=== PATIENT | female | born 1965 | race Asian ===

== ENCOUNTER 2017-12-10 00:01 | Inpatient (IN) | payer OTHER ==
[~2017-12-10] VITALS: Ht 154.9 cm; Wt 55.7 kg
[2017-12-10] MEDS ORDERED: ONDANSETRON 2MG/ML, 2ML IVPush PRN (01:00)
[2017-12-10] MEDS ORDERED: SODIUM CHLORIDE 0.9% 1,000 ML IV SCH (01:00)
[2017-12-10] MEDS ORDERED: ACETAMINOPHEN 325 MG TABLET PO PRN (01:00)
[2017-12-10] MEDS ORDERED: HYDR10TA4 PO (01:03)
[2017-12-10] MEDS ORDERED: AMOX875T PO (01:03)
[2017-12-10 01:13] VITALS: BP 111/73
[2017-12-10] MEDS ORDERED: AMOXICILLIN/CLAV 875-125MG TABLET PO SCH (01:30)
[2017-12-10] MEDS ORDERED: hydrOXyzine 10MG TABLET PO PRN (01:30)
[2017-12-10 02:06] VITALS: BP 111/73
[2017-12-10 02:11] LABS: TROPONIN I < 0.015 ng/mL (0.000-0.045)
[2017-12-10 06:34] LABS: TROPONIN I < 0.015 ng/mL (0.000-0.045)
[2017-12-10 08:00] VITALS: BP 107/73
[2017-12-10 11:39] LABS: BASOPHILS # (AUTO) 0.06 x10^3/uL (0-0.1); BASOPHILS % (AUTO) 1 % (0-1); EOSINOPHILS # (AUTO) 0.11 x10^3/uL (0-0.4); EOSINOPHILS % (AUTO) 2 % (1-7); LYMPHOCYTES # (AUTO) 1.97 x10^3/uL (1-3.4); LYMPHOCYTES % (AUTO) 35 % (22-44); MD NO; MEAN CORPUSCULAR HEMOGLOBIN 30.1 pg (27.0-34.8); MEAN CORPUSCULAR HGB CONC 33.9 g/dL (32.4-35.8); MEAN CORPUSCULAR VOLUME 88.6 fL (80-100); MEAN PLATELET VOLUME 6.8 fL (7.4-10.4); MONOCYTES # (AUTO) 0.25 x10^3/uL (0.2-0.8); MONOCYTES % (AUTO) 5 % (2-9); NEUTROPHILS # (AUTO) 3.21 x10^3/uL (1.8-6.8); NEUTROPHILS % (AUTO) 57 % (42-75); PLATELET COUNT 395 x10^3/uL (130-400); RED BLOOD COUNT 5.23 x10^6/uL (3.82-5.3)
[2017-12-10 11:44] LABS: ALBUMIN 3.9 g/dL (3.4-5.0); ANION GAP 7 mmol/L (5-15); CALCIUM 8.8 mg/dL (8.5-10.1); CHLORIDE 110 mmol/L (98-107)
[2017-12-10 11:48] LABS: ALANINE AMINOTRANSFERASE 30 U/L (12-78); ALKALINE PHOSPHATASE 71 U/L (45-117); BILIRUBIN,TOTAL 0.8 mg/dL (0.2-1.0); CREATININE 0.86 mg/dL (0.55-1.02); TOTAL PROTEIN 7.8 g/dL (6.4-8.2)
[2017-12-10] MEDS ORDERED: REGADENOSON 0.4 MG/5 ML SYRINGE ONE (12:07)
[2017-12-10 14:11] VITALS: BP 116/74
[2017-12-10 14:38] VITALS: BP 108/72
[2017-12-10] MEDS ORDERED: OMEP-110 PO (15:48)
== END 2017-12-10 17:05 | disposition home or self-care (01) | DRG 313 ==
LOC: 5SO 00:36 → DCLOUNGE 16:53
PROVIDERS: ADMIT Hospitalist; ATTEND Hospitalist
DX: R07.89 Other chest pain (principal); H66.90 Otitis media, unspecified, unspecified ear; Z82.49 Family history of ischemic heart disease and other diseases of the circulatory system
CPT/HCPCS: 36415; 78452; 80053; 83735; 84100; 84484; 85025; 85379; 93005; 93017; 99285; J2785; A9502; C9898; J7030